=== PATIENT | male | born 1940 | race Caucasian/White ===

== ENCOUNTER 2019-09-18 08:32 | Day surgery (SDC) | payer MEDICARE ==
[~2019-09-18 08:32] MED LIST: Buffered Lidocaine 1% SYRIN* 1 ML/SYRINGE INTRADERM ONE; Lactated Ringers 1000 ML Bag* 1,000 ML IV SCH
[2019-09-18] MEDS ORDERED: ceFAZolin 2 GM in NS PREMIX(*) 2 GM/100 ML BAG IVPB ONE (08:49)
[2019-09-18] MEDS ORDERED: Bupivacaine 0.25% SDV* 30 ML ONE (09:27)
[2019-09-18] MEDS ORDERED: Propofol* 10 MG/ML 20 ML BTL ONE (09:36)
[2019-09-18] MEDS ORDERED: Midazolam* 1 MG/ML 2 ML VIAL (2 MG) ONE (09:37)
[2019-09-18] MEDS ORDERED: Lidocaine 2% PF * 5 ML VIAL ONE (09:44)
[2019-09-18] MEDS ORDERED: DiMENhydriNATE IV* 50 MG/ML VIAL IV PUSH PRN (10:02)
[2019-09-18] MEDS ORDERED: Naloxone* 0.4 MG/ML 1 ML VIAL IV PRN (10:02)
[2019-09-18] MEDS ORDERED: HYDROmorphone INJ1* 1 MG/ML SYRINGE IV PRN (10:02)
[2019-09-18] MEDS ORDERED: oxyCODONE/Acetamin 5/325 MG* TAB PO PRN (10:02)
[2019-09-18] MEDS ORDERED: Ondansetron INJ* 2 MG/ML VIAL IV PRN (10:02)
[2019-09-18] MEDS ORDERED: fentaNYL* 50 MCG/ML 2 ML VIAL (100 MCG VIAL) IV PRN (10:02)
[2019-09-18] MEDS ORDERED: Dexamethasone IV* 4 MG/ML 1 ML (4 MG) ONE (10:13)
[2019-09-18] MEDS ORDERED: Ondansetron INJ* 2 MG/ML VIAL ONE (10:13)
[2019-09-18] MEDS ORDERED: Phenylephrine 40 MCG/ML SYRINGE ONE (11:22)
[2019-09-18] MEDS ORDERED: EPHEDrine (Pressors)* 50 MG/ML VIAL ONE (11:22)
[2019-09-18 13:32] VITALS: BP 128/57
--- NOTE | 2019-09-18 20:21 | OP ---
DATE OF OPERATION: 09/18/19 - [facility] DATE OF : 36 SURGEON: Shakeel Ivy MD JAVA TECH: MITCHEL Ladd. An assistant general manager was needed for the entirety of the procedure to aid in positioning of the arm and retraction. ANESTHESIOLOGIST: Dr. Charles. ANESTHESIA: General. PRE-OP DIAGNOSIS: Left Dupuytren's contractures, thumb, ring and small fingers. POST-OP DIAGNOSIS: Left Dupuytren's contractures, thumb, ring and small fingers. OPERATIVE PROCEDURE: 1. Excision of Dupuytren's tissue, left palm and small finger. 2. Excision of Dupuytren's tissue, left palm and ring finger. 3. Excision of Dupuytren's tissue, left thumb. INDICATIONS: Mr. Melendez is 78 years old. He has Dupuytren's contractures of multiple cords affecting multiple digits. We had talked about treatment options. He wanted to proceed with surgery. He understands there is a risk of neurovascular injury and stiffness and wound problems. He agrees and wants to proceed. ESTIMATED BLOOD LOSS: 2 mL. COMPLICATIONS: None. FINDINGS: See above and below. DESCRIPTION OF PROCEDURE: Mr. Melendez was seen in the preoperative holding area. The correct site, side, and procedures were identified. We came back to the operating room where the arm was prepped and draped in the usual fashion and a time-out was performed. The arm was exsanguinated with the Esmarch and the tourniquet was inflated to 225 mmHg. The arm was positioned with the lead hand. I went ahead and made a Joann- type incision along the course of the small finger and then another over the central cord affecting the ring finger. Full-thickness flaps were raised off of the cords. I first released the ring finger cord proximally. I then traced that out distally releasing the vertical septi. The cord terminated just over the proximal phalanx. Once I had fully released the cord, we handed off that as a specimen. That fully released the MCP joint contracture that he had there. I then in like manner released the origin of the abductor cord that he had in the small finger. This was traced down to the level of the proximal phalanx. At this point, I went ahead and raised skin flaps off of both the radial-sided cord and the ulnar-sided cord that he had. The digital neurovascular bundles were tracked from proximal out to distal. Care was taken to preserve them. I first released the radial cord. This tracked retrovascularly all the way down past the DIP joint. This followed out until it was fully released and excised. Care was taken to preserve all the digital nerves including past the trifurcation. I then came and followed out the abductor cord all the way distally. It terminated over the middle phalanx. All the Dupuytren's tissue was excised there. With the ring and small fingers done, I went ahead and released the apex of each flap and was able to get quite a bit of good skin elongation with this. Wounds were closed with 4-0 nylon suture. Lastly, I went ahead and flexed the wrist a little bit and supinated the hand to expose the thumb. A Joann incision was made over the thumb. Dissection was carried down. Full-thickness flaps were raised off of the cord. The cord was released proximally. It was traced out distally preserving the radial digital nerve all the way out past the IP joint. The trifurcation was preserved. The cord was fully excised. The MP joint contracture was released. The wound was irrigated out. Skin was closed with 4-0 nylon suture. 0.25% Marcaine was infiltrated. A well-padded short arm splint into the fingers was applied with the MCP joints and IP joints in extension. Tourniquet was deflated. All the fingers pinked up immediately. He was taken to the recovery room in stable condition. [id number]/[facility] #: [id number] JEAN
== END 2019-09-18 13:24 | disposition home or self-care (01) ==
LOC: OREAST 08:32
PROVIDERS: ATTEND Orthopaedic Surgery Hand Surgery
PROC: 0LN80ZZ Release Left Hand Tendon, Open Approach (ICD-10-PCS; 2019-09-18)
PROC: 0LN80ZZ Release Left Hand Tendon, Open Approach (ICD-10-PCS; 2019-09-18)
PROC: 0LN80ZZ Release Left Hand Tendon, Open Approach (ICD-10-PCS; 2019-09-18)
PROC: 0JNK0ZZ Release Left Hand Subcutaneous Tissue and Fascia, Open Approach (ICD-10-PCS; principal; 2019-09-18 10:15)
DX: M72.0 Palmar fascial fibromatosis [Dupuytren] (principal); I10 Essential (primary) hypertension; E03.9 Hypothyroidism, unspecified; M15.9 Polyosteoarthritis, unspecified; K21.9 Gastro-esophageal reflux disease without esophagitis; E78.00 Pure hypercholesterolemia, unspecified; Z79.82 Long term (current) use of aspirin; Z88.6 Allergy status to analgesic agent; Z88.8 Allergy status to other drugs, medicaments and biological substances
CPT/HCPCS: 88304; J0690; J1100; J2250; J2405; J2704; J3490

== ENCOUNTER 2019-09-27 08:52 | Emergency (ER) | payer MEDICARE ==
--- NOTE | 2019-09-27 09:14 | ED ---
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 He states that he had surgery performed by Dr. Ivy on his left arm 1 week PHOTOVOLTAIC INSTALLATION TECHNICIAN for ligament repair in his left arm fingers. He fell in the bathtub while taking a shower this morning and got his cast wet. He states that he did not hit his head or neck. He mentions some minor pain to the left wrist under his cast and rates his current pain severity a 3/10. No aggravating or alleviating factors noted. He also denies any fever. - History of Current Complaint Chief Complaint: EDExtremityUpper Stated Complaint: CAST ALL WET FROM FALL Time Seen by Provider: 09/27/19 09:03 Hx Obtained From: Patient Mechanism Of Injury: Fall From A Standing Position Onset/Duration: Started Hours Ago, Still Present Timing: Constant, Lasting Hours Severity Initially: Mild Severity Currently: Mild Pain Location: Wrist - left Aggravating Factor(s): Nothing Alleviating Factor(s): Nothing Associated Signs & Symptoms: Negative: Fever - Allergies/Home Medications Allergies/Adverse Reactions: Allergies Allergy/AdvReac Type Severity Reaction Status Date / Time atenolol Allergy Severe Dizziness Verified 09/27/19 09:00 diclofenac Allergy Severe Dizziness Verified 09/27/19 09:00 lisinopril Allergy Severe Dizziness Verified 09/27/19 09:00 ibuprofen Allergy Unknown Unknown Verified 09/27/19 09:00 Reaction Details PMH/Surg Hx/FS Hx/Imm Hx Endocrine/Hematology History: Reports: Hx Thyroid Disease Cardiovascular History: Reports: Hx Hypertension Musculoskeletal History: Reports: Hx Arthritis, Hx Bursitis - possible left shoulder Sensory History: Reports: Hx Cataracts - very very beginnings, Hx Contacts or Glasses - glasses, Hx Hearing Aid - both ears Opthamlomology History: Reports: Hx Cataracts - very very beginnings, Hx Contacts or Glasses - glasses - Cancer History Hx Chemotherapy: No - Surgical History Surgery Procedure, Year, and Place: APPENDECTOMY 1959. LEFT ARM SURGERY-INJURY. RIGHT ARM SKIN CA REMOVED. right rotator cuff surgery 2006. bilat inguinal hernia repair 2009, 2015 Hx Anesthesia Reactions: No Infectious Disease History: No Infectious Disease History: Denies: Traveled Outside the [place] in Last 30 Days - Family History Known Family History: Negative: Diabetes - Social History Alcohol Use: None Substance Use Type: Reports: None Smoking Status (MU): Never Smoked Tobacco Review of Systems Negative: Fever Musculoskeletal: Other - pos - left wrist pain All Other Systems Reviewed And Are Negative: Yes Physical Exam - Summary Physical Exam Summary: Constitutional: Well-developed, Well-nourished, Alert. (-) Distressed Skin: Warm, Dry HENT: Normocephalic; Atraumatic Eyes: Conjunctiva normal Neck: Musculoskeletal ROM normal neck. (-) JVD, (-) Stridor, (-) Tracheal deviation Cardio: Rhythm regular, rate normal, Heart sounds normal; Intact distal pulses; The pedal pulses are 2+ and symmetric. Radial pulses are 2+ and symmetric. (-) Murmur Pulmonary/Chest wall: Effort normal. (-) Respiratory distress, (-) Wheezes, (-) Rales Abd: Soft, (-) tenderness, (-) Distension, (-) Guarding, (-) Rebound Musculoskeletal: (-) Edema Left Arm: Cast in place, initial wrap removed, underlying padding soaked in water, no cast deformity. Lymph: (-) Cervical adenopathy Neuro: Alert, Oriented x3 Psych: Mood and affect Normal Triage Information Reviewed: Yes Vital Signs On Initial Exam: Initial Vitals Temp Pulse Resp BP Pulse Ox 98.0 F 71 16 147/74 100 09/27/19 08:55 09/27/19 08:55 09/27/19 08:55 09/27/19 08:55 09/27/19 08:55 Vital Signs Reviewed: Yes Procedures - Sedation Patient Received Moderate/Deep Sedation with Procedure: No Diagnostics - Vital Signs Vital Signs Temp Pulse Resp BP Pulse Ox 09/27/19 08:55 98.0 F 71 16 147/74 100 - Laboratory Lab Statement: Any lab studies that have been ordered have been reviewed, and results considered in the medical decision making process. - Radiology Hand XR Radiology Interpretation Completed By: Radiologist Summary of Radiographic Findings: IMPRESSION: EVALUATION COMPLICATED BY OVERLYING CAST. NO DISPLACED FRACTURE IS IDENTIFIED. IF PAIN PERSISTS, FOLLOW- UP IMAGING IS RECOMMENDED. ED Physician has reviewed this report. 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 He states that he had surgery performed by Dr. Ivy on his left arm 1 week PHOTOVOLTAIC INSTALLATION TECHNICIAN for ligament repair in his left arm fingers. He fell in the bathtub while taking a shower this morning and got his cast wet. A Left hand XR reveals: EVALUATION COMPLICATED BY OVERLYING CAST. NO DISPLACED FRACTURE IS IDENTIFIED. IF PAIN PERSISTS, FOLLOW-UP IMAGING IS RECOMMENDED. Final Dx is fall. Pt will be discharged with PCP and orthopedic surgeon follow up. Pt is agreeable with this plan. - Diagnoses Provider Diagnoses: Fall Discharge ED - Sign-Out/Discharge Documenting (check all that apply): Patient Departure - discharge - Discharge Plan Condition: Stable Disposition: HOME Patient Education Materials: Splint Care (ED) Referrals: Lenny Mcgovern MD [Primary Care Provider] - 3 Days Additional Instructions: Please follow up with your orthopedic surgeon as scheduled. Please return for any new or worsening symptoms. - Billing Disposition and Condition Condition: STABLE Disposition: Home - Attestation Statements Document Initiated by Mathew: Yes Documenting Scribe: Myron Manuel Provider For Whom Mathew is Documenting (Include Credential): Mk Wiley DO Scribe Attestation: IMyron, scribed for Mk Wiley DO on 09/27/19 at 1329. Scribe Documentation Reviewed: Yes Provider Attestation: The documentation as recorded by the Myron schroeder accurately reflects the service I personally performed and the decisions made by Mk infante DO Status of Scrvictor manuel Document: Viewed
[2019-09-27 11:01] VITALS: BP 138/82
--- OUTSIDE RECORDS SUMMARY | 2019-09-30 15:26 | XMS REPORT | Continuity of Care Document ---
:1940 External Reference #:[id number] Author Name Marielena Rincon, [facility] Address [address] [place] [id number] Care Team Providers Name Role Phone Lenny Mcgovern MD - Family Medicine Care Team Information Engine Testing Supervisor Problems Active Problems Provider Date History of polyp of colon Homero Hernandez M.D. Onset: 06/04/2013 Social History Type Date Description Comments Sex Unknown Tobacco Use Start: Unknown Never Smoked Cigarettes ETOH Use Denies alcohol use Tobacco Use Start: Unknown Patient has never smoked Recreational Drug Use Denies Drug Use Smoking Status Reviewed: 04/30/19 Patient has never smoked Allergies, Adverse Reactions, Alerts Active Allergies Reaction Severity Comments Date Ibuprofen unknown 05/14/2013 Atenolol dizzy 05/14/2013 Lisinopril dizzy 05/14/2013 Diclofenac 09/25/2018 Medications Active Medications SIG Qnty Indications Ordering Provider Date Valsartan 1 po qd 30tabs Unknown 80 Tablets Aspirin 1 po qd Unknown 81mg Tablets DR Calcium 600/Vitamin D Unknown Tablets Synthroid 1 by mouth Unknown 25mcg Tablets every day Pravastatin Sodium 1 by mouth Unknown 40mg every day Tablets Amlodipine Besylate 1 by mouth Unknown 5mg every day Tablets Penicillin V Potassium 1 tab by mouth Unknown twice a day 250mg Tablets Medications Administered in Office Medication SIG Qnty Indications Ordering Provider Date Methylprednisolone acetate Marielena Rincon, 09/25/2018 (Depomedrol) 80mg injection RPAC Injection Methylprednisolone acetate Marielena Rincon, 09/14/2017 (Depomedrol) 80mg injection RPAC Injection Methylprednisolone acetate Marielena Rincon, 09/13/2016 (Depomedrol) 80mg injection RPAC Injection Methylprednisolone acetate Rincon, Marielena S., 05/17/2016 (Depomedrol) 80mg injection RPAC Injection Methylprednisolone acetate RinconMarielena bustos S., 01/17/2016 (Depomedrol) 80mg injection RPAC Injection Methylprednisolone acetate RinconMarielena bustos S., 07/19/2015 (Depomedrol) 80mg injection RPAC Injection Methylprednisolone acetate Marielena Rincon S., 01/14/2015 (Depomedrol) 80mg injection RPAC Injection Methylprednisolone acetate RinconMarielena bustos S., 03/10/2014 (Depomedrol) 80mg injection RPAC Injection Methylprednisolone acetate Rincon, Marielena S., 09/12/2013 (Depomedrol) 80mg injection RPAC Injection Immunizations Description No Information Available Vital Signs Date Vital Result Comment 08/04/2019 9:23am BP Systolic 118 mmHg BP Diastolic 75 mmHg Body Temperature 96.6 F Heart Rate 59 /min Height 69.5 inches 5'9.50" Weight 171.00 lb BMI (Body Mass Index) 24.9 kg/m2 BSA (Body Surface Area) 1.94 m2 [place] body weight in kilograms 74 kg O2 % BldC Oximetry 99 % 04/30/2019 8:11am BP Systolic 154 mmHg BP Diastolic 83 mmHg Body Temperature 97.9 F Heart Rate 67 /min Height 68 inches 5'8" Weight 173.00 lb BMI (Body Mass Index) 26.3 kg/m2 BSA (Body Surface Area) 1.92 m2 [place] body weight in kilograms 70 kg O2 % BldC Oximetry 100 % Results Description No Information Available Procedures Date Code Description Status 04/30/2019 16281 Pare Hyperkeratotic Lesion, 2-4 Completed 04/24/2019 62729 Radiology, Foot, Complete-3 Views Completed 04/24/2019 20741 Pare Hyperkeratotic Lesion, 2-4 Completed 10/29/2007 03635114 Colonoscopy Completed Medical Devices Description No Information Available Encounters Type Date Location Provider Dx Diagnosis Office Visit 08/04/2019 Orthopaedic Office Marielena Rincon 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., 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] M79.642 Pain in left hand Office Visit 04/30/2019 8:00a Podiatry Office Won Epperson M79.671 Pain in right DPM foot L84 Corns and callosities 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.11 Hallux valgus (acquired), right foot M20.12 Hallux valgus (acquired), left foot M20.5x2 Other deformities of toe(s) (acquired), left foot M20.5x1 Other deformities of toe(s) (acquired), right foot Office Visit 04/24/2019 1:30p Orthopaedic Office Marielena Rincon M25.571 Pain in right S., [facility] ankle and joints of right foot B07.0 Plantar wart L84 Corns and callosities Assessments Date Code Description Provider 08/04/2019 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] Marielena Rincon [facility] 08/04/2019 M79.642 Pain in left hand Marielena Rincon, [facility] 04/30/2019 M79.671 Pain in right foot Won Epperson, [facility] 04/30/2019 L84 Corns and callosities Won Epperson, [facility] 04/30/2019 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 Won Epperson, [facility] 04/30/2019 M20.11 Hallux valgus (acquired), right foot Won Epperson, [facility] 04/30/2019 M20.12 Hallux valgus (acquired), left foot Won Epperson, [facility] 04/30/2019 M20.5x2 Other deformities of toe(s) (acquired), Zhou Won, [facility] left foot 04/30/2019 M20.5x1 Other deformities of toe(s) (acquired), Zhou Won, [facility] right foot 04/24/2019 M25.571 Pain in right ankle and joints of right Marielena Rincon, [facility] foot 04/24/2019 B07.0 Plantar wart Marielena Rincon, [facility] 04/24/2019 L84 Corns and callosities Marielena Rincon [facility] Plan of Treatment No Information Available Functional Status Functional Condition Comment Date Status Glasses Active Mental Status Description No Information Available Referrals Refer to Dr Reason for Referral Status Appt Date Shakeel Ivy MD Left hand Dupuytren's contractures involving Scheduled 08/15/2019 thumb, ring and small fingers. Small finger is most bothersome. Patient is requesting Dr. Ivy. Dr. Shakeel Ivy [address] [place] [address] [place] [address] [phone]
--- OUTSIDE RECORDS SUMMARY | 2019-09-30 15:26 | XMS REPORT | Continuity of Care Document ---
:1940 External Reference #:[id number] Author Name Shakeel Ivy MD (transmitted by agent of provider Brandon Cordova) Address [address] [place] [address] Care Team Providers Name Role Phone Lenny Mcgovern MD - Emergency Care Team Information Lay Up Operator [phone] Medicine Problems Active Problems Provider Date Contracture of palmar fascia Shakeel Ivy MD Onset: 08/15/2019 Social History Type Date Description Comments Sex Unknown Tobacco Use Start: Unknown Never Smoked Cigarettes Smoking Status Reviewed: 08/29/19 Never Smoked Cigarettes ETOH Use Denies alcohol use Tobacco Use Start: Unknown Patient has never smoked Recreational Drug Use Denies Drug Use Exercise Type/Frequency Exercises regularly Allergies, Adverse Reactions, Alerts Active Allergies Reaction Severity Comments Date Ibuprofen 08/15/2019 Atenolol 08/15/2019 Lisinopril 08/15/2019 Diclofenac 08/15/2019 Medications Active Medications SIG Qnty Indications Ordering Provider Date Valsartan 1 by mouth every Unknown 80mg Tablets day Aspir-Low 1 by mouth every Unknown 81mg Tablets DR day Calcium + Vitamin D3 1 tab by mouth Unknown every day [id number] Chewtabs Synthroid 1 by mouth every Unknown 25mcg Tablets day Pravastatin Sodium take one tablet Unknown 40mg by mouth every Tablets evening Amlodipine Besylate 1 by mouth every Unknown 5mg day Tablets Immunizations Description No Information Available Vital Signs Date Vital Result Comment 08/29/2019 11:02am Height 70 inches 5'10" Weight 170.00 lb Heart Rate 68 /min BP Systolic 128 mmHg BP Diastolic 78 mmHg BMI (Body Mass Index) 24.4 kg/m2 08/15/2019 12:47pm Height 70 inches 5'10" Weight 170.00 lb Heart Rate 66 /min BP Systolic Sitting 124 mmHg BP Diastolic Sitting 80 mmHg Respiratory Rate 18 /min Body Temperature 97.7 F Pain Level 0 O2 % BldC Oximetry 98 % BMI (Body Mass Index) 24.4 kg/m2 Results Description No Information Available Procedures Date Code Description Status 07/31/2019 39398 Dest Lesion Each Addl Lesion 2 Through 14 Each Completed 07/31/2019 07458 Destruction ALL Benign Or Premalignant Lesion (Other Than Completed [place] [facility] Description No Information Available Encounters Type Date Location Provider Dx Diagnosis Office Visit 08/15/2019 [facility] Shakeel Ivy 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] Office Visit 07/31/2019 [facility] AT Yeny Kelley, L72.0 Epidermal cyst 11:00a [facility] D22.5 Melanocytic nevi of trunk Z08 Encntr for follow-up exam after trtmt for malignant neoplasm Z85.820 Personal history of malignant melanoma of skin L57.0 Actinic keratosis Assessments Date Code Description Provider 08/29/2019 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] Shakeel Ivy MD 08/15/2019 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] Shakeel Ivy MD 07/31/2019 L72.0 Epidermal cyst Yeny Kelley MD 07/31/2019 D22.5 Melanocytic nevi of trunk Yeny Kelley MD 07/31/2019 Z08 Encounter for follow-up examination after Yeny Kelley MD completed treatment for malignant neoplasm 07/31/2019 Z85.820 Personal history of malignant melanoma of skin Yeny Kelley MD 07/31/2019 L57.0 Actinic keratosis Yeny Kelley MD Plan of Treatment Future Appointment(s):10/03/2019 10:30 am - Shakeel Ivy MD at [facility] at [place]/21/2019 3:30 pm - Shakeel Ivy MD at [facility] at Qrahbf6708/05/2020 11:00 am - Yeny Kelley MD at [facility] AT [place]76/01/2019 - Shakeel Ivy 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
--- OUTSIDE RECORDS SUMMARY | 2019-09-30 15:26 | XMS REPORT | Continuity of Care Document ---
:1940 External Reference #:[id number] Author Name Shakeel Ivy MD (transmitted by agent of provider Brandon Cordova) Address [address] [place] [address] Care Team Providers Name Role Phone Lenny Mcgovern MD - Emergency Care Team Information Airway Traffic Controller [phone] Medicine Problems Active Problems Provider Date Contracture of palmar fascia Shakeel Ivy MD Onset: 08/15/2019 Social History Type Date Description Comments Sex Unknown Tobacco Use Start: Unknown Never Smoked Cigarettes Smoking Status Reviewed: 08/15/19 Never Smoked Cigarettes ETOH Use Denies alcohol [...] 1 tab by mouth Unknown every day [id number] Chewtabs Synthroid 1 by mouth every Unknown 25mcg Tablets day Pravastatin Sodium take one tablet Unknown 40mg by mouth every Tablets evening Amlodipine Besylate 1 by mouth every Unknown 5mg day Tablets Immunizations Description No Information Available Vital Signs Date Vital Result Comment 08/15/2019 12:47pm Height 70 inches 5'10" Weight 170.00 lb Heart Rate 66 /min BP Systolic Sitting 124 mmHg BP Diastolic Sitting 80 mmHg Respiratory Rate 18 /min Body Temperature 97.7 F Pain Level 0 O2 % BldC Oximetry 98 % BMI (Body Mass Index) 24.4 kg/m2 Results Description No Information Available Procedures Date Code Description Status 07/31/2019 72235 Dest Lesion Each Addl Lesion 2 Through 14 Each Completed 07/31/2019 97838 Destruction ALL Benign Or Premalignant Lesion (Other Than Completed [place] [facility] Description No Information Available Encounters Type Date Location Provider Dx Diagnosis Office Visit 07/31/2019 [facility] AT Yeny Kelley L72.0 Epidermal cyst 11:00a [facility] D22.5 Melanocytic nevi of trunk Z08 Encntr for follow-up exam after trtmt for malignant neoplasm Z85.820 Personal history of malignant melanoma of skin L57.0 Actinic keratosis Assessments Date Code Description Provider 08/15/2019 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] Shakeel Ivy MD 07/31/2019 L72.0 Epidermal cyst Yeny Kelley MD 07/31/2019 D22.5 Melanocytic nevi of trunk Yeny Kelley MD 07/31/2019 Z08 Encounter for follow-up examination after Yeny Kelley MD completed treatment for malignant neoplasm 07/31/2019 Z85.820 Personal history of malignant melanoma of skin Yeny Kelley MD 07/31/2019 L57.0 Actinic keratosis Yeny Kelley MD Plan of Treatment Future Appointment(s):08/05/2020 11:00 am - Yeny Kelley MD at [facility] AT Yivmebtd57/18/2019 - Shakeel Ivy MD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]Follow up:Follow up: 7-10 days before surgery Functional Status Description No Information Available Mental Status Description No Information Available Referrals Description No Information Available
--- OUTSIDE RECORDS SUMMARY | 2019-09-30 15:26 | XMS REPORT | Continuity of Care Document ---
:1940 External Reference #:[id number] Author Name Shakeel Ivy MD (transmitted by agent of provider Bridgette Guerra) Address [address] [place] [address] Care Team Providers Name Role Phone Lenny Mcgovern MD - Emergency Care Team Information Dish Room Worker [phone] Medicine Problems Active Problems Provider Date Contracture [...] 1 tab by mouth Unknown every day [id number] Che[employer]abs Synthroid 1 by mouth every Unknown [...] Available Procedures Date Code Description Status 07/31/2019 83645 Dest Lesion Each Addl Lesion 2 Through 14 Each Completed 07/31/2019 72620 Destruction ALL Benign Or Premalignant Lesion (Other Than Completed [facility] Description No Information Available Encounters Type Date Location Provider Dx Diagnosis Office Visit 08/15/2019 [facility] Shakeel Ivy 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] Office Visit 07/31/2019 [facility] AT Yeny Kelley, L72.0 Epidermal cyst 11:00a [facility] D22.5 Melanocytic nevi of trunk Z08 Encntr for follow-up exam after trtmt for malignant neoplasm Z85.820 Personal history of malignant melanoma of skin L57.0 Actinic keratosis Assessments Date Code Description Provider 08/29/2019 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] Shakeel Ivy MD 08/15/2019 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] Shakeel Ivy MD 07/31/2019 L72.0 Epidermal cyst eYny Kelley MD 07/31/2019 D22.5 Melanocytic nevi of trunk Yeny Kelley MD 07/31/2019 Z08 Encounter for follow-up examination after Yeny Kelley MD completed treatment for malignant neoplasm 07/31/2019 Z85.820 Personal history of malignant melanoma of skin Yeny Kelley MD 07/31/2019 L57.0 Actinic keratosis Yeny Kelley MD Plan of Treatment Future Appointment(s):10/03/2019 10:30 am - Shakeel Ivy MD at [facility] at Obwqsuqk14/21/2019 3:30 pm - Shakeel Ivy MD at [facility] at Qsvfok9808/05/2020 11:00 am - Yeny Kelley MD at [facility] Dermatology AT Oyhcdeiv82/01/2019 - Shakeel Ivy 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
== END 2019-09-27 11:00 | disposition home or self-care (01) ==
LOC: ED 08:52
DX: Z47.89 Encounter for other orthopedic aftercare (principal); W18.2XXA Fall in (into) shower or empty bathtub, initial encounter; Y93.E1 Activity, personal bathing and showering; Y92.002 Bathroom of unspecified non-institutional (private) residence as the place of occurrence of the external cause; E07.9 Disorder of thyroid, unspecified; I10 Essential (primary) hypertension; Z90.89 Acquired absence of other organs; Z85.828 Personal history of other malignant neoplasm of skin; Z88.8 Allergy status to other drugs, medicaments and biological substances
CPT/HCPCS: 99283